=== PATIENT | female | born 1940 | race Caucasian/White ===

== ENCOUNTER 2020-04-26 20:42 | Emergency (ER) | payer MEDICARE, OTHER ==
[~2020-04-26] VITALS: Ht 152.4 cm; Wt 69.4 kg
--- NOTE | 2020-04-26 21:49 | Diagnostic Imaging Report ---
EXAM: Abdomen Radiograph 1 View(s) INDICATION: ^Y ^ABD PAIN ^[id number] ^[id number] COMPARISON: None FINDINGS: Diffuse gaseous distention of the colon. No discrete dilated small bowel loops. No abnormal soft tissue calcification. No discrete free intraperitoneal air. Scattered osseous degenerative change. No acute osseous abnormality. IMPRESSION: Diffuse gaseous distention of the colon. No identifiable dilated small bowel loops to suggest small bowel obstruction. Signed by: Haider Woo MD on 04/26/2020 9:46 PM
[2020-04-26 22:54] LABS: BASOPHILS % 0.4 % (0.0-1.0); EOSINOPHILS % 0.3 % (0.0-6.0); HEMATOCRIT 40.5 % (34.2-44.1); HEMOGLOBIN 12.5 g/dL (12.0-16.0); LYMPHOCYTES # (AUTO) 1.2 (1.0-3.2); LYMPHOCYTES % 10.6 % (18.0-39.1); MEAN CORPUSCULAR HEMOGLOBIN 27.8 pg (28-32); MEAN CORPUSCULAR HGB CONC 30.9 g/dL (31-35); MONOCYTES # (AUTO) 0.6 (0.2-0.8); MONOCYTES % 5.2 % (4.4-11.3); NEUTROPHILS # (AUTO) 9.5 (2.1-6.9); NEUTROPHILS % 83.1 % (38.7-80.0); PLATELET COUNT 314 x10e3/uL (140-360); RED CELL DISTRIBUTION WIDTH 14.2 % (11.7-14.4)
[2020-04-26 23:11] LABS: ALBUMIN 4.1 g/dL (3.5-5.0); ALBUMIN/GLOBULIN RATIO 1.2 (0.8-2.0); ANION GAP 14.1 mmol/L (8-16); CALCIUM 9.6 mg/dL (8.4-10.2); CREATININE, SERUM 1.43 mg/dL (0.57-1.11); POTASSIUM 4.1 mmol/L (3.5-5.1)
--- NOTE | 2020-04-26 23:48 | Emergency Department Note ---
History of Present Illnes History of Present Illness Chief Complaint: Abdominal Complaints History of Present Illness This is a 79 year old female arrived to the ED with complaints of diffuse abdominal pain after taking lactulose, pt states she has had multiple bowel movements, but improvement of symptoms and resolution of abdominal pain noted. Historian: Patient Arrival Mode: Car Field Agent Required: No Onset (how long ago): hour(s) Radiation: Reports non-radiation Severity: mild Timing of current episode: intermittent Progression: partially resolved Chronicity: new Relieving factors: none Past Medical/Family History Physician Review I have reviewed the patient's past medical and family history. Any updates have been documented here. Past Medical History Recent Fever: No Clinical Suspicion of Infectio: No New/Unexplained Change in Ment: No Past Medical History: Hypertension, COPD, CHF, CT, Asthma, Hyperlipedemia, Osteoarthritis Past Surgical History: CABG, PCI Social History Smoking Cessation: Never Smoker Family History Family history of heart diseas: No Other Last Tetanus: UNKNOWN Review of Systems Review of Systems Constitutional: Reports no symptoms EENTM: Reports no symptoms Cardiovascular: Reports no symptoms Respiratory: Reports no symptoms Gastrointestinal: Reports abdominal pain, Reports vomiting Genitourinary: Reports no symptoms Musculoskeletal: Reports no symptoms Integumentary: Reports no symptoms Neurological: Reports no symptoms Psychological: Reports no symptoms Endocrine: Reports no symptoms Hematological/Lymphatic: Reports no symptoms Physical Exam Related Data Allergies: Coded Allergies: Codeine (Verified Allergy, Mild, CAN'T BREATHE, 01/17/11) Penicillins (Verified Allergy, Mild, SEVERE RASH, 08/21/10) Sulfa (Sulfonamide Antibiotics) (Verified Allergy, Mild, SEVERE RASH, 08/21/10) Triage Vital Signs Vital Signs Date Time Temp Pulse Resp B/P (MAP) Pulse Ox O2 Delivery O2 Flow Rate FiO2 04/26/20 21:05 98.0 69 20 142/108 97 Vital signs reviewed: Yes Physical Exam CONSTITUTIONAL Constitutional: Present well-developed, Present well-nourished HENT HENT: Present normocephalic, Present atraumatic, Present oropharynx clear/moist, Present nose normal HENT L/R: Present left ext ear normal, Present right ext ear normal EYES Eyes: Reports PERRL, Reports conjunctivae normal NECK Neck: Present ROM normal PULMONARY Pulmonary: Present effort normal, Present breath sounds normal CARDIOVASCULAR Cardiovascular: Present regular rhythm, Present heart sounds normal, Present capillary refill normal, Present normal rate GASTROINTESTINAL Abdominal: Present soft, Present nontender, Present bowel sounds normal GENITOURINARY Genitourinary: Present exam deferred SKIN Skin: Present warm, Present dry MUSCULOSKELETAL Musculoskeletal: Present ROM normal NEUROLOGICAL Neurological: Present alert, Present oriented x 3, Present no gross motor or sensory deficits PSYCHOLOGICAL Psychological: Present mood/affect normal, Present judgement normal Results Laboratory Result Diagram: 04/26/20 2227 Laboratory Laboratory Tests Test 04/26/20 22:27 White Blood Count 11.37 x10e3/uL (4.8-10.8) Red Blood Count 4.50 x10e6/uL (3.6-5.1) Hemoglobin 12.5 g/dL (12.0-16.0) Hematocrit 40.5 % (34.2-44.1) Mean Corpuscular Volume 90.0 fL (81-99) Mean Corpuscular Hemoglobin 27.8 pg (28-32) Mean Corpuscular Hemoglobin Concent 30.9 g/dL (31-35) Red Cell Distribution Width 14.2 % (11.7-14.4) Platelet Count 314 x10e3/uL (140-360) Neutrophils (%) (Auto) 83.1 % (38.7-80.0) Lymphocytes (%) (Auto) 10.6 % (18.0-39.1) Monocytes (%) (Auto) 5.2 % (4.4-11.3) Eosinophils (%) (Auto) 0.3 % (0.0-6.0) Basophils (%) (Auto) 0.4 % (0.0-1.0) Neutrophils # (Auto) 9.5 (2.1-6.9) Lymphocytes # (Auto) 1.2 (1.0-3.2) Monocytes # (Auto) 0.6 (0.2-0.8) Eosinophils # (Auto) 0.0 (0.0-0.4) Basophils # (Auto) 0.0 (0.0-0.1) Absolute Immature Granulocyte (auto 0.04 x10e3/uL (0-0.1) Lab results reviewed: Yes Imaging Imaging results reviewed: Yes Impressions IMPRESSION: Diffuse gaseous distention of the colon. No identifiable dilated small bowel loops to suggest small bowel obstruction. Assessment & Plan Medical Decision Making MDM 79-year-old female arrives to the ED with complaints of abdominal pain, patient recently took lactulose as described. Constipation. Patient admits to having bowel movements and improvement of pain and bloating but states her stomach feels a little distended. Assessment & Plan Final Impression: (1) Constipation Depart Disposition: HOME, SELF-CARE Last Vital Signs Date Time Temp Pulse Resp B/P (MAP) Pulse Ox O2 Delivery O2 Flow Rate FiO2 04/26/20 21:05 98.0 69 20 142/108 97 ADELA JAQUEZ DO Apr 26, 2020 23:48
== END 2020-04-27 00:31 | disposition home or self-care (01) ==
LOC: ER 23:47
DX: K59.00 Constipation, unspecified (principal); R10.9 Unspecified abdominal pain; I10 Essential (primary) hypertension; E78.5 Hyperlipidemia, unspecified; J44.9 Chronic obstructive pulmonary disease, unspecified; I50.9 Heart failure, unspecified; I25.2 Old myocardial infarction; Z95.1 Presence of aortocoronary bypass graft
CPT/HCPCS: 36415; 74018; 80053; 83690; 85025; 99283

== ENCOUNTER 2020-06-25 15:33 | Inpatient (IN) | payer MEDICARE, OTHER ==
[~2020-06-25] VITALS: Ht 152.4 cm; Wt 68.6 kg
[2020-06-25 16:25] LABS: BASOPHILS # (AUTO) 0.1 (0.0-0.1); BASOPHILS % 0.4 % (0.0-1.0); EOSINOPHILS # (AUTO) 0.1 (0.0-0.4); EOSINOPHILS % 0.7 % (0.0-6.0); HEMATOCRIT 38.9 % (34.2-44.1); HEMOGLOBIN 12.4 g/dL (12.0-16.0); LYMPHOCYTES # (AUTO) 1.5 (1.0-3.2); LYMPHOCYTES % 11.2 % (18.0-39.1); MEAN CORPUSCULAR HEMOGLOBIN 28.4 pg (28-32); MEAN CORPUSCULAR HGB CONC 31.9 g/dL (31-35); MONOCYTES # (AUTO) 1.1 (0.2-0.8); MONOCYTES % 8.2 % (4.4-11.3); NEUTROPHILS # (AUTO) 10.8 (2.1-6.9); NEUTROPHILS % 79.1 % (38.7-80.0); PLATELET COUNT 332 x10e3/uL (140-360); RED BLOOD COUNT 4.37 x10e6/uL (3.6-5.1); RED CELL DISTRIBUTION WIDTH 14.2 % (11.7-14.4)
[2020-06-25 16:35] LABS: INR 0.94
[2020-06-25 16:36] LABS: PARTIAL THROMBOPLASTIN TIME 29.4 seconds (23.8-35.5)
--- OUTSIDE RECORDS SUMMARY | 2020-06-25 16:42 | XMS REPORT | Continuity of Care Document ---
Author Author [facility] t Organization [facility] Address [address] [place] [address] Phone Unavailable Care Team Providers Care Well Driller Name Role Phone Fernando SPENCER PCP [phone] Soraida JAQUEZ Attjuan Unavailable Payers Payer Name Policy Type Policy Number Effective Date Expiration Date Soraida barbour [id number] 2007 00:00:00 [facility] Ppo [id number] 2007 00:00:00 [facility] Problems Condition Name Condition Details Condition Category Status Onset Date Resolution Date Last Treatment Date Treating Clinician Comments Source Problem Condition Active [facility] Allergies, Adverse Reactions, Alerts Allergy Name Allergy Type Status Severity Reaction(s) Onset Date Inacti ve Date Treating Clinician Comments Source Codeine Allergy to substance Active Mild CAN'T BREATHE 2011-01-17 00 :00:00 [facility] Penicillin Allergy to substance Active Mild SEVERE RASH 2010-08-21 0 0:00:00 [facility] Sulfa (Sulfonamide Antibiotics) Allergy to substance Active Mild SEVERE RASH 2010-08-21 00:00:00 [facility] Social History Social Habit Start Date Stop Date Quantity Comments Source Sex Assigned At [facility] Medications This patient has no known medications. Vital Signs Vital Name Observation Time Observation Value Comments Source Weight 2020-04-26 21:05:00 153 [lb_av] [facility] BMI (Body Mass Index) 2020-04-26 21:05:00 29.9 kg/m2 [facility] Procedures This patient has no known procedures. Plan of Care Planned Activity Planned Date Details Comments Source Future Scheduled Test 2018-07-28 00:00:00 INFLUENZA VACCINE [code = INFLUENZA VACCINE] [facility] - [facility] Encounters Start Date/Time End Date/Time Encounter Type Admission Type [facility] Care Department Encounter ID Source 2020-04-26 23:47:00 2020-04-27 00:31:00 Departed Emergency Room ADELA JAQUEZ [facility] [id number] [facility] Results Test Description Test Time Test Comments Results Result Comments Source Blood leukocytes automated count (number/volume) 2020-04-26 22:27:00 Test Item White Blood Count (test code = 6690-2) 11.37 4.8-10.8 [facility] count (number/volume)2020-04-26 22:27:00* Test Item Value Reference Range Interpretation Comments Red Blood Count (test code = 789-8) 4.50 3.6-5.1 [facility] measurement (moles/volume)2020-04-26 22:27:00* Test Item Value Reference Range Interpretation Comments Hemoglobin (test code = 13827-1) 12.5 12.0-16.0 [facility] blood hematocrit (volume fraction)2020-04-26 22:27:00* Test Item Value Reference Range Interpretation Comments Hematocrit (test code = 4544-3) 40.5 34.2-44.1 [facility] erythrocyte mean corpuscular [id number] 22:27:00* Test Item Value Reference Range Interpretation Comments Mean Corpuscular Volume (test code = 787-2) 90.0 81-99 [facility] eryth[facility] mean corpuscular hemoglobin (mass per erythrocyte)2020-04-26 22:27:00* Test Item Value Reference Range Interpretation Comments Mean Corpuscular Hemoglobin (test code = 785-6) 27.8 28-32 [facility] eryth[facility] mean corpuscular hemoglobin concentration measurement (mass/volume)2020-04-26 22:27:00* Test Item Value Reference Range Interpretation Comments Mean Corpuscular Hemoglobin Concent (test code = 786-4) 30.9 31-35 [facility] HospitalRDW [id number] 22:27:00* Test Item Value Reference Range Interpretation Comments Red Cell Distribution Width (test code = 18636-1) 14.2 11.7 -14.4 [facility] platelet count (count/volume)2020-04-26 22:27:00* Test Item Value Reference Range Interpretation Comments Platelet Count (test code = 777-3) 314 140-360 [facility] campused blood segmented neutrophil count as percentage of total [id number] 22:27:00* Test Item Value Reference Range Interpretation Comments Neutrophils (%) (Auto) (test code = 91679-8) 83.1 38.7-80.0 [facility] campused blood lymphocyte count as percentage ot total [id number] 22:27:00* Test Item Value Reference Range Interpretation Comments Lymphocytes (%) (Auto) (test code = 736-9) 10.6 18.0-39.1 [facility] HospitalAutom[facility] blood monocyte count as percentage of total [id number] 22:27:00* Test Item Value Reference Range Interpretation Comments Monocytes (%) (Auto) (test code = 5905-5) 5.2 4.4-11.3 [facility] campused blood eosinophil count as percentage of total ttffwjbqmw1055-64-43 22:27:00* Test Item Value Reference Range Interpretation Comments Eosinophils (%) (Auto) (test code = 713-8) 0.3 0.0-6.0 [facility] HospitalAutom[facility] blood basophil count as percentage of total [id number] 22:27:00* Test Item Value Reference Range Interpretation Comments Basophils (%) (Auto) (test code = 706-2) 0.4 0.0-1.0 [facility] HospitalFluoroscopic procedure less than one hour [id number] 22:27:00* Test Item Value Reference Range Interpretation Comments IM GRANULOCYTES % (test code = IM GRANULOCYTES %) 0.4 0.0- 1.0 [facility] HospitalAutom[facility] blood neutrophil count 2020-04-26 22:27:00* Test Item Value Reference Range Interpretation Comments Neutrophils # (Auto) (test code = 751-8) 9.5 2.1-6.9 [facility] Hospital[facility] lymphocytes count (number/volume) 2020-04-26 22:27:00* Test Item Value Reference Range Interpretation Comments Lymphocytes # (Auto) (test code = 13354-9) 1.2 1.0-3.2 [facility] HospitalBlood monocytes automated count (number/volume)2020-04-26 22:27:00* Test Item Value Reference Range Interpretation Comments Monocytes # (Auto) (test code = 742-7) 0.6 0.2-0.8 [facility] HospitalAutomated blood eosinophil count 2020-04-26 22:27:00* Test Item Value Reference Range Interpretation Comments Eosinophils # (Auto) (test code = 711-2) 0.0 0.0-0.4 [facility] HospitalAutomated blood basophil count (count/volume)2020-04-26 22:27:00* Test Item Value Reference Range Interpretation Comments Basophils # (Auto) (test code = 704-7) 0.0 0.0-0.1 [facility] HospitalFluoroscopic procedure less than one hour [id number] 22:27:00* Test Item Value Reference Range Interpretation Comments Absolute Immature Granulocyte (auto (ana t code = Absolute Immature Granulocyte (auto) 0.04 0-0.1 [facility] sodium [facility] (moles/volume)2020-04-26 22:27:00* Test Item Value Reference Range Interpretation Comments Sodium Level (test code = 2951-2) 133 136-145 [facility] potassium measurement (moles/volume)2020-04-26 22:27:00* Test Item Value Reference Range Interpretation Comments Potassium Level (test code = 2823-3) 4.1 3.5-5.1 [facility] chloride measurement (moles/volume)2020-04-26 22:27:00* Test Item Value Reference Range Interpretation Comments Chloride Level (test code = 2075-0) 99 98-107 [facility] plasma carbon dioxide, total measurement (moles/volume)2020-04-26 22:27:00* Test Item Value Reference Range Interpretation Comments Carbon Dioxide Level (test code = 2028-9) 24 - [facility]um or plasma anion [id number] 22:27:00* Test Item Value Reference Range Interpretation Comments Anion Gap (test code = 78553-1) 14.1 8-16 [facility] urea nitrogen measurement (mass/volume)2020-04-26 22:27:00* Test Item Value Reference Range Interpretation Comments Blood Urea Nitrogen (test code = 3094-0) 13 7-26 [facility] creatinine measurement (mass/volume)2020-04-26 22:27:00* Test Item Value Reference Range Interpretation Comments Creatinine (test code = 2160-0) 1.43 0.57-1.11 [facility] urea nitrogen/creatinine mass [id number] 22:27:00* Test Item Value Reference Range Interpretation Comments BUN/Creatinine Ratio (test code = 3097-3) 9 6-25 [facility] HospitalEstimated glomerular filtration rate (GFR) pubwvzrylzkzh6005-52-20 22:27:00* Test Item Value Reference Range Interpretation Comments Estimat Glomerular Filtration Rate (test code = 760414056) 36 >60 Ranges were taken from the National Kidney Disease Education Program and the [facility] Kidney Foundation literature.Reference ranges:60 or greater: Srwglw70-74 ( for 3 consecutive months): Chronic kidney disease 15 or less: Kidney failureMemorial Hermann Cypress HospitalGlucose ftqkllzywkw2927-95-38 22:27:00* Test Item Value Reference Range Interpretation Comments Glucose Level (test code = XZH3927) 115 74-118 [facility] calcium measurement (mass/volume)2020-04-26 22:27:00* Test Item Value Reference Range Interpretation Comments Calcium Level (test code = 65726-9) 9.6 8.4-10.2 [facility] total bilirubin measurement (mass/volume)2020-04-26 22:27:00* Test Item Value Reference Range Interpretation Comments Total Bilirubin (test code = 1975-2) 0.4 0.2-1.2 [facility] HospitalFluoroscopic procedure less than one hour [id number] 22:27:00* Test Item Value Reference Range Interpretation Comments Aspartate Amino Transf (AST/SGOT) (test code = Aspartate Amino Transf (AST/SGOT)) 14 5-34 [facility]er[facility] or plasma alanine aminotransferase measurement (enzymatic activity/volume)2020-04-26 22:27:00* Test Item Value Reference Range Interpretation Comments Alanine Aminotransferase (ALT/SGPT) (test code = 1742-6) 6 0-55 [facility] plasma protein measurement (mass/volume)2020-04-26 22:27:00* Test Item Value Reference Range Interpretation Comments Total Protein (test code = 2885-2) 7.5 6.5-8.1 [facility] plasma albumin measurement (mass/volume)2020-04-26 22:27:00* Test Item Value Reference Range Interpretation Comments Albumin (test code = 1751-7) 4.1 3.5-5.0 [facility] HospitalPlasma globulin measurement (mass/volume) 2020-04-26 22:27:00* Test Item Value Reference Range Interpretation Comments Globulin (test code = 98168-7) 3.4 2.3-3.5 [facility] plasma albumin/globulin mass [id number] 22:27:00* Test Item Value Reference Range Interpretation Comments Albumin/Globulin Ratio (test code = 1759-0) 1.2 0.8-2.0 [facility] alkaline phosphatase measurement (enzymatic activity/volume)2020-04-26 22:27:00* Test Item Value Reference Range Interpretation Comments Alkaline Phosphatase (test code = 6768-6) 72 40-150 [facility] or plasma lipase measurement (enzymatic activity/volume)2020-04-26 22:27:00* Test Item Value Reference Range Interpretation Comments Lipase (test code = 3040-3) 23 8-78 [facility] HospitalABDOMEN-1VIEW (KUB)2020-04-26 21:44:00 [facility] [address] [address] Patient Name: CRISTIANE LIRA MR #: [id number] : 1940 Age/Sex: 79/F Req #: [id number] Adm Physician: Ordered by: ADELA JAQUEZ DO Report #: [id number] Location: ER Room/Bed: Procedure: [id number] DX/IDALMISO MEN-1VIEW (KUB) Exam Date: 04/26/20 Exam Time: 2119 REPORT STATUS: Signed EXAM: Abdo men Radiograph 1 View(s) INDICATION: Y ABD PAIN 20200426 212 COMPARISON: None FINDINGS: Diffuse gaseous distention of the colon . No discrete dilated small bowel loops. No abnormal soft tissue calcificat ion. No discrete free intraperitoneal air. Scattered osseous degenerative c hange. No acute osseous abnormality. IMPRESSION: Diffuse gaseous diste ntion of the colon. No identifiable dilated small bowel loops to suggest small bowel obstruction. Signed by: Haider Michelle MD on 04/26/2020 9:46 PM Dictated By: HAIDER MICHELLE MD 47 Transcribed By: MARILYNN on 04/26/202145 COPY TO: ADELA DEVINE DO
--- OUTSIDE RECORDS SUMMARY | 2020-06-25 16:42 | XMS REPORT | Clinical Summary ---
Author Author [facility] Address Unknown Phone Unavailable Care Team Providers Care Kettleman Name Role Phone PCP Unavailable Allergies Not on File Medications Not on file Active Problems Not on file Social History Date Tobacco Use Types Packs/Day Years Used Never Assessed Sex Assigned at Date Recorded Not on file Industry Job Start Date Occupation Not on file Not on file Not on file Travel End Travel History Travel Start No recent travel history available. Last Filed Vital Signs Not on file Plan of Treatment Health Maintenance Due Date Last Done Comments INFLUENZA VACCINE 07/28/2018 Results Not on fileafter 06/25/2019 Insurance Payer Benefit Subscriber ID Type Phone Address Plan / Group [employer] [facility] [facility] [phone]
[2020-06-25 16:44] LABS: ALBUMIN 3.8 g/dL (3.5-5.0); ALKALINE PHOSPHATASE 76 IU/L (40-150); BLOOD UREA NITROGEN 11 mg/dL (7-26); BUN/CREATININE RATIO 8 (6-25); CALCIUM 9.3 mg/dL (8.4-10.2); CARBON DIOXIDE 21 mmol/L (22-29); CHLORIDE 97 mmol/L (98-107); CREATININE, SERUM 1.33 mg/dL (0.57-1.11); EST GLOMERULAR FILTRATION RATE 39 ML/MIN (60-); GLUCOSE 117 mg/dL (74-118); SODIUM 132 mmol/L (136-145)
[2020-06-25 16:48] LABS: ALANINE AMINOTRANSFERASE < 6 IU/L (0-55)
--- NOTE | 2020-06-25 16:54 | Emergency Department Note ---
History of Present Illnes History of Present Illness Chief Complaint: Abdominal Complaints History of Present Illness This is a 79 year old female PATIENT IN FROM HOME WITH COMPLAINTS OF ABDOMINAL PAIN AND CONSTIPATION OFF AND ON X 2 MONTHS; PATIENT STATES THAT SHE WAS SEEN FOR THE SAME THING 04/26/2020. PATIENT ALERT AND ORIENTED, RESP EVEN AND NONLABORED, APPEARS IN NO DISTRESS, AMBULATORY WITHOUT ASSISTANCE. RATES PAIN 10/10. PATIENT DENIES NAUSEA, VOMITING, OR DIARRHEA. Historian: Patient Arrival Mode: Car Onset (how long ago): month(s) Radiation: Reports non-radiation Severity: moderate Onset quality: gradual Timing of current episode: intermittent Progression: worsening (PAIN WORSE TODAY) Chronicity: recurrent Context: Denies recent illness Relieving factors: none Exacerbating factors: none Associated symptoms: Reports denies other symptoms Treatments prior to arrival: none (SHERMAN STEEN MD) Past Medical/Family History Physician Review I have reviewed the patient's past medical and family history. Any updates have been documented here. (SHERMAN STEEN MD) Past Medical History Recent Fever: No Clinical Suspicion of Infectio: No New/Unexplained Change in Ment: No Past Medical History: Hypertension, COPD, CHF, [place], Asthma, Hyperlipedemia, Osteoarthritis Past Surgical History: CABG, PCI (SHERMAN STEEN MD) Social History Smoking Cessation: Never Smoker Counseling Performed: No Alcohol Use: None Any Illegal Drug Use: No TB Exposure/Symptoms: No Physically hurt or threatened: No (SHERMAN STEEN MD) Family History Family history of heart diseas: No (SHERMAN STEEN MD) Other Last Tetanus: UNKNOWN Any Pre-Existing Lines (PICC,: No (SHERMAN TSEEN MD) Review of Systems Review of Systems Constitutional: Reports no symptoms EENTM: Reports no symptoms Cardiovascular: Reports no symptoms Respiratory: Reports no symptoms Gastrointestinal: Reports as per HPI Genitourinary: Reports no symptoms Musculoskeletal: Reports no symptoms Integumentary: Reports no symptoms Neurological: Reports no symptoms Psychological: Reports no symptoms Endocrine: Reports no symptoms Hematological/Lymphatic: Reports no symptoms (SHERMAN STEEN MD) Physical Exam Related Data Allergies: Coded Allergies: Penicillins (Verified Allergy, Mild, SEVERE RASH, 06/25/20) Sulfa (Sulfonamide Antibiotics) (Verified Allergy, Mild, SEVERE RASH, 06/25/20) codeine (Verified Allergy, Mild, CAN'T BREATHE, 06/25/20) Triage Vital Signs Vital Signs Date Time Temp Pulse Resp B/P (MAP) Pulse Ox O2 Delivery O2 Flow Rate FiO2 06/25/20 15:37 97.8 87 16 121/69 97 Room Air Vital signs reviewed: Yes (SHERMAN STEEN MD) Physical Exam CONSTITUTIONAL Constitutional: Present well-developed, Present obese HENT HENT: Present normocephalic, Present atraumatic, Present oropharynx clear/moist, Present nose normal HENT L/R: Present left ext ear normal, Present right ext ear normal EYES Eyes: Reports PERRL, Reports conjunctivae normal NECK Neck: Present ROM normal PULMONARY Pulmonary: Present effort normal, Present breath sounds normal CARDIOVASCULAR Cardiovascular: Present regular rhythm, Present heart sounds normal, Present capillary refill normal, Present normal rate GASTROINTESTINAL Abdominal: Present soft, Present tender (MOD SUSY, MILD DIFFUSE), Present other (DECREASED BOWEL SOUNDS); Absent distension, Absent guarding, Absent rebound, Absent left CVA tenderness, Absent right CVA tenderness GENITOURINARY Genitourinary: Present exam deferred SKIN Skin: Present warm, Present dry MUSCULOSKELETAL Musculoskeletal: Present ROM normal NEUROLOGICAL Neurological: Present alert, Present oriented x 3, Present no gross motor or sensory deficits PSYCHOLOGICAL Psychological: Present mood/affect normal, Present judgement normal (SHERMAN STEEN MD) Results Laboratory Result Diagram: 06/25/20 1604 06/25/20 1604 Laboratory Laboratory Tests Test 06/25/20 16:41 06/25/20 16:04 White Blood Count 13.69 x10e3/uL (4.8-10.8) Red Blood Count 4.37 x10e6/uL (3.6-5.1) Hemoglobin 12.4 g/dL (12.0-16.0) Hematocrit 38.9 % (34.2-44.1) Mean Corpuscular Volume 89.0 fL (81-99) Mean Corpuscular Hemoglobin 28.4 pg (28-32) Mean Corpuscular Hemoglobin Concent 31.9 g/dL (31-35) Red Cell Distribution Width 14.2 % (11.7-14.4) Platelet Count 332 x10e3/uL (140-360) Neutrophils (%) (Auto) 79.1 % (38.7-80.0) Lymphocytes (%) (Auto) 11.2 % (18.0-39.1) Monocytes (%) (Auto) 8.2 % (4.4-11.3) Eosinophils (%) (Auto) 0.7 % (0.0-6.0) Basophils (%) (Auto) 0.4 % (0.0-1.0) Neutrophils # (Auto) 10.8 (2.1-6.9) Lymphocytes # (Auto) 1.5 (1.0-3.2) Monocytes # (Auto) 1.1 (0.2-0.8) Eosinophils # (Auto) 0.1 (0.0-0.4) Basophils # (Auto) 0.1 (0.0-0.1) Absolute Immature Granulocyte (auto 0.06 x10e3/uL (0-0.1) Prothrombin Time 13.0 seconds (11.9-14.5) Prothromb Time International Ratio 0.94 Activated Partial Thromboplast Time 29.4 seconds (23.8-35.5) Sodium Level 132 mmol/L (136-145) Potassium Level 4.0 mmol/L (3.5-5.1) Chloride Level 97 mmol/L (98-107) Carbon Dioxide Level 21 mmol/L (22-29) Anion Gap 18.0 mmol/L (8-16) Blood Urea Nitrogen 11 mg/dL (7-26) Creatinine 1.33 mg/dL (0.57-1.11) Estimat Glomerular Filtration Rate 39 ML/MIN (60-) BUN/Creatinine Ratio 8 (6-25) Glucose Level 117 mg/dL (74-118) Calcium Level 9.3 mg/dL (8.4-10.2) Total Bilirubin 0.7 mg/dL (0.2-1.2) Aspartate Amino Transf (AST/SGOT) 12 IU/L (5-34) Alanine Aminotransferase (ALT/SGPT) < 6 IU/L (0-55) Alkaline Phosphatase 76 IU/L (40-150) Total Protein 7.6 g/dL (6.5-8.1) Albumin 3.8 g/dL (3.5-5.0) Globulin 3.8 g/dL (2.3-3.5) Albumin/Globulin Ratio 1.0 (0.8-2.0) Lab results reviewed: Yes (SHERMAN STEEN MD) Imaging Imaging results reviewed: Yes (SHERMAN STEEN MD) Imaging results reviewed: Yes Impressions Procedure: [id number] CT/CT ABDOMEN/PELVIS WO Exam Date: 06/25/20 Exam Time: 1820 REPORT STATUS: Signed EXAM: CT Abdomen and Pelvis WITHOUT contrast INDICATION: Abdominal pain and constipation. COMPARISON: Same day radiographs. TECHNIQUE: Abdomen and pelvis were scanned utilizing a multidetector helical scanner from the lung base to the pubic symphysis without administration of IV contrast. Absence of intravenous contrast decreases sensitivity for detection of focal lesions and vascular pathology. Coronal and sagittal reformations were obtained. Routine protocol was performed. IV CONTRAST: None ORAL CONTRAST: None COMPLICATIONS: None RADIATION DOSE: Total DLP: 521.63 mGy*cm Estimated effective dose: (DLP x 0.015 x size factor) mSv CTDIvol has been reviewed. It is below the limits set by the Radiation Protocol Committee (RPC). Dose modulation, iterative reconstruction, and/or weight based adjustment of the mA/kV was utilized to reduce the radiation dose to as low as reasonably achievable. FINDINGS: LINES and TUBES: None. LOWER THORAX: Bibasilar atelectasis and atherosclerotic calcification of the coronary vessels. There is also cardiac apical and pericardial dystrophic calcification. HEPATOBILIARY: No focal hepatic lesions. No biliary ductal dilation. GALLBLADDER: No radio-opaque stones or sludge. No wall thickening. SPLEEN: No splenomegaly. PANCREAS: No focal masses or ductal dilatation. ADRENALS: No adrenal nodules KIDNEYS/URETERS: No hydronephrosis. No cystic or solid mass lesions. No stones. GI TRACT: There is a small sized hiatal hernia. Enteric contrast material is seen in the small bowel only. Large bowel is not opacified by enteric contrast, limiting optimal assessment. There is diffuse diverticulosis coli and apparent circumferential wall thickening of the sigmoid colon which is difficult to evaluate due to lack of enteric contrast. There is mildly dilated loops of large bowel proximal to the sigmoid colon. The appendix is normal. PELVIC ORGANS/BLADDER: Unremarkable. LYMPH NODES: No lymphadenopathy. VESSELS: There is severe atherosclerotic disease in the aorta and major arterial branches. PERITONEUM / RETROPERITONEUM: No free air or fluid. BONES: There are degenerative changes in the spine. There are compression fracture deformities of T10, T12, L2, L3 and L4 vertebral bodies. SOFT TISSUES: Unremarkable. IMPRESSION: 1. Diverticulosis coli and apparent circumferential wall thickening of the sigmoid colon with mild colonic dilatation proximally. This constellation of findings may represent acute diverticulitis causing mucosal wall thickening and partial large bowel obstruction. However, this may also represent sigmoid colon malignancy resulting in partial large bowel obstruction. Recommend repeat abdominal/pelvic CT with addition of intravenous contrast in 1-2 hours to also w enteric contrast into the large bowel for optimal assessment. 2. Compression fractures involving T10, T12, L2, L3 and L4 vertebral bodies of indeterminate age. Correlate with history of trauma and point tenderness. Signed by: Ben Foss MD on 06/25/2020 7:04 PM Dictated By: EBN FOSS MD 03 Transcribed By: MARILYNN on 06/25/201903 COPY TO: SHERMAN STEEN MD~ (JUAN DILLARD MD) Assessment & Plan Medical Decision Making [facility] PT WITH LONG HX OF CONSTIPATION, NOW WITH INCREASED ABD PAIN - CHECK CBC, CHEM'S, UA/CX, CT ABD/PELVIS - R/O CONSTIPATION, BOWEL OBSTRUCTION, RENAL INSUFF, UTI (SHERMAN STEEN MD) MDM 1932 Patient found to have partial large bowel obstruction on CT head and pelvis related to either diverticulitis or possible colon mass. I spoke with Dr. Jeromy Moncada for admission and he requested I consult Dr. Francis Jarquin added Dr. Grady Wade I have spoken to both Dr. SRIRAM young and/or Dr. Wade of outpatient patient admitted to inpatient kept nothing by mouth started on antibiotics for diverticulitis (JUAN DILALRD MD) Reassessment Reassessment REPORT TO DR DILLARD FOR DISPO - F/U CT (SHERMAN STEEN MD) Assessment & Plan Final Impression: (1) Abdominal pain (2) UTI (urinary tract infection) (SHERMAN STEEN MD) Final Impression: (1) UTI (urinary tract infection) (2) Abdominal pain (3) Large bowel obstruction (4) Diverticulitis (JUAN DILLARD MD) Depart Disposition: ADMITTED Last Vital Signs Date Time Temp Pulse Resp B/P (MAP) Pulse Ox O2 Delivery O2 Flow Rate FiO2 06/25/20 15:37 97.8 87 16 121/69 97 Room Air (SHERMAN STEEN MD) SHERMAN STEEN MD Jun 25, 2020 16:54 JUAN DILLARD MD Jun 25, 2020 19:33
[2020-06-25 17:18] LABS: CLARITY,URINE CLEAR (CLEAR); COLOR,URINE YELLOW (YELLOW)
[2020-06-25 17:19] LABS: BILIRUBIN,URINE NEGATIVE (NEGATIVE); KETONES,URINE NEGATIVE (NEGATIVE); LEUKOCYTE ESTERASE ,URINE TRACE (NEGATIVE); NITRITE,URINE NEGATIVE (NEGATIVE); PROTEIN,URINE DIPSTICK NEGATIVE (NEGATIVE); URINE UROBILINOGEN 0.2 mg/dL (0.2 - 1)
[2020-06-25] MEDS ORDERED: DIATRIZOATE MEGL/DIATRIZOA SOD 30 ML BTL PO ONE (17:19)
[2020-06-25 17:38] LABS: BACTERIA,URINE RARE /HPF; EPITHELIAL CELLS,URINE FEW /LPF
[2020-06-25] MEDS ORDERED: CEFTRIAXONE SOD 1 GM/NS 50 ML 50 ML IV ONE (18:30)
--- NOTE | 2020-06-25 19:08 | Diagnostic Imaging Report ---
EXAM: CT Abdomen and Pelvis WITHOUT contrast INDICATION: Abdominal pain and constipation. COMPARISON: Same day radiographs. TECHNIQUE: Abdomen and pelvis were scanned utilizing a multidetector helical scanner from the lung base to the pubic symphysis without administration of IV contrast. Absence of intravenous contrast decreases sensitivity for detection of focal lesions and vascular pathology. Coronal and sagittal reformations were obtained. Routine protocol was performed. IV CONTRAST: None ORAL CONTRAST: None COMPLICATIONS: None RADIATION DOSE: Total DLP: 521.63 mGy*cm Estimated effective dose: (DLP x 0.015 x size factor) mSv CTDIvol has been reviewed. It is below the limits set by the Radiation Protocol Committee (RPC). Dose modulation, iterative reconstruction, and/or weight based adjustment of the mA/kV was utilized to reduce the radiation dose to as low as reasonably achievable. FINDINGS: LINES and TUBES: None. LOWER THORAX: Bibasilar atelectasis and atherosclerotic calcification of the coronary vessels. There is also cardiac apical and pericardial dystrophic calcification. HEPATOBILIARY: No focal hepatic lesions. No biliary ductal dilation. GALLBLADDER: No radio-opaque stones or sludge. No wall thickening. SPLEEN: No splenomegaly. PANCREAS: No focal masses or ductal dilatation. ADRENALS: No adrenal nodules KIDNEYS/URETERS: No hydronephrosis. No cystic or solid mass lesions. No stones. GI TRACT: There is a small sized hiatal hernia. Enteric contrast material is seen in the small bowel only. Large bowel is not opacified by enteric contrast, limiting optimal assessment. There is diffuse diverticulosis coli and apparent circumferential wall thickening of the sigmoid colon which is difficult to evaluate due to lack of enteric contrast. There is mildly dilated loops of large bowel proximal to the sigmoid colon. The appendix is normal. PELVIC ORGANS/BLADDER: Unremarkable. LYMPH NODES: No lymphadenopathy. VESSELS: There is severe atherosclerotic disease in the aorta and major arterial branches. PERITONEUM / RETROPERITONEUM: No free air or fluid. BONES: There are degenerative changes in the spine. There are compression fracture deformities of T10, T12, L2, L3 and L4 vertebral bodies. SOFT TISSUES: Unremarkable. IMPRESSION: 1. Diverticulosis coli and apparent circumferential wall thickening of the sigmoid colon with mild colonic dilatation proximally. This constellation of findings may represent acute diverticulitis causing mucosal wall thickening and partial large bowel obstruction. However, this may also represent sigmoid colon malignancy resulting in partial large bowel obstruction. Recommend repeat abdominal/pelvic CT with addition of intravenous contrast in 1-2 hours to also w enteric contrast into the large bowel for optimal assessment. 2. Compression fractures involving T10, T12, L2, L3 and L4 vertebral bodies of indeterminate age. Correlate with history of trauma and point tenderness. Signed by: Juan Carlos Anguiano MD on 06/25/2020 7:04 PM
[2020-06-25] MEDS ORDERED: ONDANSETRON HCL INJ 2MG/ML 2ML 2 MG/ML VIAL IV PRN (19:45)
[2020-06-25] MEDS ORDERED: MORPHINE SULFATE 2 MG/ML SYR 1ML IV PRN (19:45)
--- OUTSIDE RECORDS SUMMARY | 2020-06-25 19:46 | XMS REPORT | Clinical Summary ---
Author Author [facility] Address Unknown Phone Unavailable Care Team Providers Care Battery Engineer Name Role Phone PCP Unavailable Allergies Not [...] Address Plan / Group [facility] x[facility] [id number]
--- OUTSIDE RECORDS SUMMARY | 2020-06-25 19:46 | XMS REPORT | Continuity of Care Document ---
Author Author [facility] t Organization [facility] Address [address] [place] [address] Phone Unavailable Care Team Providers Care Coil Inspector Name Role Phone Fernando SPENCER PCP Megha STEEN Attphys Unavailable Soraida JAQUEZ Attphys Unavailable Payers Payer Name Policy Type Policy Number Effective Date Expiration Date Soraida barbour [facility] [id number] 2007 00:00:00 [facility] o [id number] 2007 00:00:00 [facility] Problems Condition Name Condition Details Condition Category Status Onset Date Resolution Date Last Treatment Date Treating Clinician Comments Source Problem Condition Active [facility] Allergies, Adverse Reactions, Alerts Allergy Name Allergy Type Status Severity Reaction(s) Onset Date Inacti ve Date Treating Clinician Comments Source Codeine Allergy to substance Active Mild CAN'T BREATHE 2011-01-17 00 :00:00 [facility] Penicillin Allergy to substance Active Mild SEVERE RASH 2010-08-21 0 0:00:00 [facility] Sulfa (Sulfonamide Antibiotics) Allergy to substance Active Mild SEVERE RASH 2010-08-21 00:00:00 [facility] Social History Social Habit Start Date Stop Date Quantity Comments Source Sex Assigned At [facility] Medications This patient has no known medications. Vital Signs Vital Name Observation Time Observation Value Comments Source Weight 2020-04-26 21:05:00 153 [lb_av] [facility] BMI (Body Mass Index) 2020-04-26 21:05:00 29.9 kg/m2 [facility] Procedures This patient has no known procedures. Plan of Care Planned Activity Planned Date Details Comments Source Future Scheduled Test 2018-07-28 00:00:00 INFLUENZA VACCINE [code = INFLUENZA VACCINE] [facility] Instructions Abdominal Pain - Adult [facility] Encounters Start Date/Time End Date/Time Encounter Type Admission Type Attendi [facility] Care Department Encounter ID Source 2020-04-26 23:47:00 2020-04-27 00:31:00 Departed Emergency Room ADELA JAQUEZ [facility] [id number] [facility] Results Test Description Test Time Test Comments Results Result Comments Source CT ABDOMEN/PELVIS WO 2020-06-25 18:50:00 [facility] [address] [address] Patient Name: CRISTIANE LIRA MR #: [id number] : 1940 Age/Sex: 79/F Req #: [id number] Adm Physician: Ordered by: SHERMAN STEEN MD Report #: [id number] Location: ER Room/Bed: Procedure: [id number] CT/CT ABDOMEN/PELVIS WO Exam Date: 06/25/20 Exam Time: 1820 REPORT STATUS: Signed EXAM: CT Abdomen and Pelvis WITHOUT contrast INDICATION: Abdominal pain and constipation. COMPARISON: Same day radiographs. TECHNIQUE: Abdomen and pelvis were scanned utilizing a multidetector helical scanner from the lung base to the pubic symphysis wit hout administration of IV contrast. Absence of intravenous contrast decreases sensitivity for detection of focal lesions and vascular pathology. Coronal and sagittal reformations were obtained. Routine protocol was performed. IV CONTRAST: None ORAL CONTRAST: None COMPLICATIONS: None RADIATION DOSE: Total DLP: 521.63 mGy*cm Estimated effective dose: (DLP x 0.015 x size factor) mSv CTDIvol has been reviewed. It is below the limits set by the Radiation Protocol Committee (RPC). Dose modulation, iterative reconstruction, and/or weight based adjustment of the mA/kV was utilized to reduce the radiation dose to as low as reasonably achievable. FINDINGS: LINES and TUBES: None. LOWER THORAX: Bibasilar atelectasis and atherosclerotic calcification of the coronary vessels. There is also cardiac apical and pericardial dystrophic calcification. HEPATOBILIARY: No focal hepatic lesions. No biliary ductal dilation. GALLBLADDER: No radio-opaque stones or sludge. No wall thickening. SPLEEN: No splenomegaly. PANCREAS: No focal masses or ductal dilatation. ADRENALS: No adrenal nodules KIDNEYS/URETERS: No hydronephrosis. No cystic or solid mass lesions. No stones. GI TRACT: There is a small sized hiatal hernia. Enteric contrast material is seen in the small bowel only. Large bowel is not opacified by enteric contrast, limiting optimal assessment. There is diffuse diverticulosis coli and apparent circumferential wall thickening of the sigmoid colon which is difficult to evaluate due to lack of enteric contrast. There is mildly dilated loops of large bowel proximal to the sigmoid colon. The appendix is normal. PELVIC ORGANS/BLADDER: Unremarkable. LYMPH NODES: No lymphadenopathy. VESSELS: There is severe atherosclerotic disease in the aorta and major arterial branches. PERITONEUM / RETROPERITONEUM: No free air or fluid. BONES: There are degenerative changes in the spine. There are compression fracture deformities of T10, T12, L2, L3 and L4 vertebral bodies. SOFT TISSUES: Unremarkable. IMPRESSION: 1. Diverticulosis coli and apparent circumferential wall thickening of the sigmoid colon with mild colonic dilatation proximally. This constellation of findings may represent acute diverticulitis causing mucosal wall thickening and partial large bowel obstruction. However, this may also represent sigmoid colon malignancy resulting in partial large bowel obstruction. Recommend repeat abd ominal/pelvic CT with addition of intravenous contrast in 1-2 hours to also w enteric contrast into the large bowel for optimal assessment. 2. Compression fractures involving T10, T12, L2, L3 and L4 vertebral bodies of indeterminate age. Correlate with history of trauma and point tenderness. Signed by: Ben Foss MD on 06/25/2020 7:04 PM Dictated By: BEN FOSS MD 03 Transcribed By: MARILYNN on 06/25/201903 COPY TO: SHERMAN STEEN MD Blood leukocytes automated count (number/volume) 2020-04-26 22:27:00 Test Item White Blood Count (test code = 6690-2) 11.37 4.8-10.8 [facility] automated count (number/volume)2020-04-26 22:27:00* Test Item Value Reference Range Interpretation Comments Red Blood Count (test code = 789-8) 4.50 3.6-5.1 [facility] hemoglobin measurement (moles/volume)2020-04-26 22:27:00* Test Item Value Reference Range Interpretation Comments Hemoglobin (test code = 72928-5) 12.5 12.0-16.0 [facility] blood hematocrit (volume fraction)2020-04-26 22:27:00* Test Item Value Reference Range Interpretation Comments Hematocrit (test code = 4544-3) 40.5 34.2-44.1 [facility] erythrocyte mean corpuscular vkcmlo0149-60-35 22:27:00* Test Item Value Reference Range Interpretation Comments Mean Corpuscular Volume (test code = 787-2) 90.0 81-99 [facility] eryth[facility] mean corpuscular hemoglobin (mass per erythrocyte)2020-04-26 22:27:00* Test Item Value Reference Range Interpretation Comments Mean Corpuscular Hemoglobin (test code = 785-6) 27.8 28-32 [facility] erythrocyte mean corpuscular hemoglobin concentration measurement (mass/volume)2020-04-26 22:27:00* Test Item Value Reference Range Interpretation Comments Mean Corpuscular Hemoglobin Concent (test code = 786-4) 30.9 31-35 [facility] HospitalRDW VhhSt-Clf7615-95-30 22:27:00* Test Item Value Reference Range Interpretation Comments Red Cell Distribution Width (test code = 94282-3) 14.2 11.7 -14.4 [facility] blood platelet count (count/volume)2020-04-26 22:27:00* Test Item Value Reference Range Interpretation Comments Platelet Count (test code = 777-3) 314 140-360 [facility] blood segmented neutrophil count as percentage of total rimocrnuyx4172-49-00 22:27:00* Test Item Value Reference Range Interpretation Comments Neutrophils (%) (Auto) (test code = 09750-5) 83.1 38.7-80.0 [facility] Hospital[facility] blood lymphocyte count as percentage ot total iwxruzqgvr9150-89-00 22:27:00* Test Item Value Reference Range Interpretation Comments Lymphocytes (%) (Auto) (test code = 736-9) 10.6 18.0-39.1 [facility] Hospital[facility] blood monocyte count as percentage of total ketawblvee2150-02-23 22:27:00* Test Item Value Reference Range Interpretation Comments Monocytes (%) (Auto) (test code = 5905-5) 5.2 4.4-11.3 [facility] blood eosinophil count as percentage of total enjmdabsem5687-81-28 22:27:00* Test Item Value Reference Range Interpretation Comments Eosinophils (%) (Auto) (test code = 713-8) 0.3 0.0-6.0 [facility] Hospital[facility] blood basophil count as percentage of total dqioevhjgc6713-31-32 22:27:00* Test Item Value Reference Range Interpretation Comments Basophils (%) (Auto) (test code = 706-2) 0.4 0.0-1.0 [facility] HospitalFluoroscopic procedure less than one hour congypnh6646-09-58 22:27:00* Test Item Value Reference Range Interpretation Comments IM GRANULOCYTES % (test code = IM GRANULOCYTES %) 0.4 0.0- 1.0 [facility] HospitalAutom[facility] blood neutrophil count 2020-04-26 22:27:00* Test Item Value Reference Range Interpretation Comments Neutrophils # (Auto) (test code = 751-8) 9.5 2.1-6.9 [facility] lymphocytes count (number/volume) 2020-04-26 22:27:00* Test Item Value Reference Range Interpretation Comments Lymphocytes # (Auto) (test code = 11337-3) 1.2 1.0-3.2 [facility] HospitalBlood monocytes automated count (number/volume)2020-04-26 22:27:00* Test Item Value Reference Range Interpretation Comments Monocytes # (Auto) (test code = 742-7) 0.6 0.2-0.8 [facility] HospitalAutomated blood eosinophil count 2020-04-26 22:27:00* Test Item Value Reference Range Interpretation Comments Eosinophils # (Auto) (test code = 711-2) 0.0 0.0-0.4 [facility] HospitalAutomated blood basophil count (count/volume)2020-04-26 22:27:00* Test Item Value Reference Range Interpretation Comments Basophils # (Auto) (test code = 704-7) 0.0 0.0-0.1 [facility] HospitalFluoroscopic procedure less than one hour rbwekbue7192-04-14 22:27:00* Test Item Value Reference Range Interpretation Comments Absolute Immature Granulocyte (auto (ana t code = Absolute Immature Granulocyte (auto) 0.04 0-[address] [facility] [place] [place] sodium measurement (moles/volume)2020-04-26 22:27:00* Test Item Value Reference Range Interpretation Comments Sodium Level (test code = 2951-2) 133 136-[address] [facility] [place] plasma potassium measurement (moles/volume)2020-04-26 22:27:00* Test Item Value Reference Range Interpretation Comments Potassium Level (test code = 2823-3) 4.1 3.5-5.[address] [facility] [place] plasma chloride measurement (moles/volume)2020-04-26 22:27:00* Test Item Value Reference Range Interpretation Comments Chloride Level (test code = 2075-0) 99 98-[address] [facility] [place] or plasma carbon dioxide, total measurement (moles/volume)2020-04-26 22:27:00* Test Item Value Reference Range Interpretation Comments Carbon Dioxide Level (test code = 2028-9) 24 22-[address] [facility] [place], [place] or plasma anion [id number] 22:27:00* Test Item Value Reference Range Interpretation Comments Anion Gap (test code = 20742-4) 14.1 8-[address] [facility] [place], [place] or plasma urea nitrogen measurement (mass/volume)2020-04-26 22:27:00* Test Item Value Reference Range Interpretation Comments Blood Urea Nitrogen (test code = 3094-0) 13 7-[address] [facility] [place] [place] or plasma creatinine measurement (mass/volume)2020-04-26 22:27:00* Test Item Value Reference Range Interpretation Comments Creatinine (test code = 2160-0) 1.43 0.57-1.[address] [facility] [place], [place] or plasma urea nitrogen/creatinine mass [id number] 22:27:00* Test Item Value Reference Range Interpretation Comments BUN/Creatinine Ratio (test code = 3097-3) 9 6-25 [facility] HospitalEstimated glomerular filtration rate (GFR) hcrhltdtvggdi1968-65-06 22:27:00* Test Item Value Reference Range Interpretation Comments Estimat Glomerular Filtration Rate (test code = 179935718) 36 >60 Ranges were taken from the National Kidney Disease Education Program and the [facility] literature.Reference ranges:60 or greater: Jkutny56-12 ( for 3 consecutive months): Chronic kidney disease 15 or less: Kidney failureUT Health East [facility] Carthage HospitalGlucose onzlvnpszkn9458-12-96 22:27:00* Test Item Value Reference Range Interpretation Comments Glucose Level (test code = BSR4023) 115 74-[address] [facility] [place], [place] or plasma calcium measurement (mass/volume)2020-04-26 22:27:00* Test Item Value Reference Range Interpretation Comments Calcium Level (test code = 93909-1) 9.6 8.4-10.[address] [facility] [place], [place] or plasma total bilirubin measurement (mass/volume)2020-04-26 22:27:00* Test Item Value Reference Range Interpretation Comments Total Bilirubin (test code = 1975-2) 0.4 0.2-1.2 [facility] HospitalFluoroscopic procedure less than one hour nlitgqir5624-65-94 22:27:00* Test Item Value Reference Range Interpretation Comments Aspartate Amino Transf (AST/SGOT) (test code = Aspartate Amino Transf (AST/SGOT)) 14 5-[address] [facility] [place], [place]erum or plasma alanine aminotransferase measurement (enzymatic activity/volume)2020-04-26 22:27:00* Test Item Value Reference Range Interpretation Comments Alanine Aminotransferase (ALT/SGPT) (test code = 1742-6) 6 0-[address] [facility] [place], [place]um or plasma protein measurement (mass/volume)2020-04-26 22:27:00* Test Item Value Reference Range Interpretation Comments Total Protein (test code = 2885-2) 7.5 6.5-8.[address] [facility] [place], [place]um or plasma albumin measurement (mass/volume)2020-04-26 22:27:00* Test Item Value Reference Range Interpretation Comments Albumin (test code = 1751-7) 4.1 3.5-5.0 [facility] HospitalPlasma globulin measurement (mass/volume) 2020-04-26 22:27:00* Test Item Value Reference Range Interpretation Comments Globulin (test code = 40094-2) 3.4 2.3-3.[address] [facility] [place], [place] or plasma albumin/globulin mass [id number] 22:27:00* Test Item Value Reference Range Interpretation Comments Albumin/Globulin Ratio (test code = 1759-0) 1.2 0.8-2.[address] [facility] [place], [place]erum or plasma alkaline phosphatase measurement (enzymatic activity/volume)2020-04-26 22:27:00* Test Item Value Reference Range Interpretation Comments Alkaline Phosphatase (test code = 6768-6) 72 40-[address] [facility] [place], [place]erum or plasma lipase measurement (enzymatic activity/volume)2020-04-26 22:27:00* Test Item Value Reference Range Interpretation Comments Lipase (test code = 3040-3) 23 8-78 [facility]-1VIEW (KUB)2020-04-26 21:44:00 [facility] [address] [address] Patient Name: CRISTIANE LIRA MR #: [id number] : 1940 Age/Sex: 79/F Req #: [id number] Adm Physician: Ordered by: ADELA JAQUEZ DO Report #: [id number] Location: ER Room/Bed: Procedure: [id number] DX/ABDO MEN-1VIEW (KUB) Exam Date: 04/26/20 Exam Time: 2119 REPORT STATUS: Signed EXAM: Abdo men Radiograph 1 View(s) INDICATION: Y ABD PAIN [id number] COMPARISON: None FINDINGS: Diffuse gaseous distention of the colon . No discrete dilated small bowel loops. No abnormal soft tissue calcificat ion. No discrete free intraperitoneal air. Scattered osseous degenerative c hange. No acute osseous abnormality. IMPRESSION: Diffuse gaseous diste ntion of the colon. No identifiable dilated small bowel loops to suggest small bowel obstruction. Signed by: Liv Michelle MD on 04/26/2020 9:46 PM Dictated By: LIV MICHELLE MD 45 Transcribed By: MARILYNN on 04/26/202145 COPY TO: ADELA DEVINE DO
[2020-06-25 20:30] VITALS: BP 157/73
[2020-06-25] MEDS: METRONIDAZOLE 500MG/NS 100ML IV SCH (20:54)
[2020-06-25] MEDS: SODIUM CHLORIDE 0.9% 1000ML 1,000 ML IV SCH (20:54)
[2020-06-25 20:58] VITALS: BP 157/73
[2020-06-25] MEDS ORDERED: ASPIRIN81 MG PO (21:08)
[2020-06-25] MEDS ORDERED: ROBITUSSIN COU118 M4 PO (21:08)
[2020-06-25] MEDS ORDERED: CLOPIDOGREL75 MG PO (21:08)
[2020-06-25] MEDS ORDERED: SYNTHROID75 MCG PO (21:08)
[2020-06-25] MEDS ORDERED: ADVAIR HFA 115-12 GM INH (21:08)
[2020-06-25] MEDS ORDERED: LOSARTAN POTASS25 MG PO (21:08)
[2020-06-25] MEDS ORDERED: BUMETANIDE1 MG PO (21:08)
[2020-06-25] MEDS ORDERED: CRESTOR10 MG PO (21:08)
[2020-06-25] MEDS ORDERED: ALENDRONATE SOD70 MG PO (21:08)
[2020-06-25] MEDS ORDERED: COLACE100 MG PO (21:08)
[2020-06-25] MEDS ORDERED: METOPROLOL TART50 MG PO ×2 (21:08)
[2020-06-25 22:31] VITALS: BP 144/77
[2020-06-25] MEDS: LEVOFLOXACIN 500MG/D5W 100ML IV SCH (23:21)
[2020-06-25] MEDS ORDERED: ACETAMINOPHEN 325 MG TAB PO PRN (23:30)
[2020-06-26] VITALS (8 sets, daily range): BP systolic 114–162; BP diastolic 58–74
[2020-06-26] MEDS: METRONIDAZOLE 500MG/NS 100ML IV SCH ×5 (00:33→23:37)
[2020-06-26] MEDS: PANTOPRAZOLE 40 MG 10ML VIAL IV SCH ×3 (01:34→20:21)
[2020-06-26 04:59] LABS: BASOPHILS % 0.2 % (0.0-1.0); EOSINOPHILS % 0.3 % (0.0-6.0); HEMATOCRIT 33.8 % (34.2-44.1); HEMOGLOBIN 10.7 g/dL (12.0-16.0); LYMPHOCYTES # (AUTO) 1.6 (1.0-3.2); LYMPHOCYTES % 13.5 % (18.0-39.1); MEAN CORPUSCULAR HEMOGLOBIN 28.3 pg (28-32); MEAN CORPUSCULAR HGB CONC 31.7 g/dL (31-35); MEAN CORPUSCULAR VOLUME 89.4 fL (81-99); MONOCYTES % 8.5 % (4.4-11.3); NEUTROPHILS # (AUTO) 8.9 (2.1-6.9); NEUTROPHILS % 76.9 % (38.7-80.0); PLATELET COUNT 283 x10e3/uL (140-360); RED BLOOD COUNT 3.78 x10e6/uL (3.6-5.1); RED CELL DISTRIBUTION WIDTH 14.1 % (11.7-14.4)
[2020-06-26 05:25] LABS: ALBUMIN 3.1 g/dL (3.5-5.0); ALKALINE PHOSPHATASE 62 IU/L (40-150); ANION GAP 15.6 mmol/L (8-16); BLOOD UREA NITROGEN 9 mg/dL (7-26); BUN/CREATININE RATIO 9 (6-25); CALCIUM 8.4 mg/dL (8.4-10.2); CARBON DIOXIDE 21 mmol/L (22-29); CHLORIDE 99 mmol/L (98-107); CREATININE, SERUM 1.03 mg/dL (0.57-1.11); EST GLOMERULAR FILTRATION RATE 52 ML/MIN (60-); GLUCOSE 97 mg/dL (74-118); POTASSIUM 3.6 mmol/L (3.5-5.1); SODIUM 132 mmol/L (136-145)
[2020-06-26 05:26] LABS: ALANINE AMINOTRANSFERASE < 6 IU/L (0-55)
[2020-06-26] MEDS: SODIUM CHLORIDE 0.9% 1000ML 1,000 ML IV SCH (12:31)
--- NOTE | 2020-06-26 13:37 | History and Physical ---
PRIMARY CARE PHYSICIAN: Dr. Jenna Bourne at [facility]. CHIEF COMPLAINT: Abdominal pain, radiating to her back and constipation. HISTORY OF PRESENT ILLNESS: This is a 79-year-old female with past medical history of hypertension, high cholesterol, COPD, CHF, and osteoarthritis, presented to the ER with complaints of abdominal pain, radiating to her back and constipation. She reports three weeks ago she had worked out in the pool and had some pain and went to her doctor who had given her some pain medication/muscle relaxer, which continued to constipate her and stopped taking it about a week ago, but her lower abdomen was hurting with no bowel movements for a few days. She reports yesterday the pain was so severe and with no appetite. She denies any fever, chills, nausea, vomiting, diarrhea, melena, hematuria, or dysuria. She reports the pain is located in the lower abdomen radiating to her back, but denies any chest pain, shortness of breath, or cough. She reports taking some laxatives yesterday, which this morning she was able to have a large bowel movement. PAST MEDICAL HISTORY: 1. Hypertension. 2. High cholesterol. 3. Congestive heart failure. 4. CAD. 5. COPD. 6. Osteoporosis. 7. Hypothyroidism. PAST SURGICAL HISTORY: She reports bypass. FAMILY MEDICAL HISTORY: She reports father had cancer and mother had hypertension. SOCIAL HISTORY: She reports quitting smoking when she was 42 years old, but denies any alcohol or illicit drug use. ALLERGIES: SHE IS ALLERGIC TO PENICILLIN, SULFA, AND CODEINE. REVIEW OF SYSTEMS: Twelve-system reviewed and negative except as reported in the HPI. PHYSICAL EXAMINATION: VITAL SIGNS: Temperature 98.2, pulse is 85, respirations 17, blood pressure 125/69, and pulse ox is 97% on room air. GENERAL: No acute distress. HEENT: Normocephalic, atraumatic. NECK: Supple. LUNGS: Clear to auscultation. CARDIOVASCULAR: Regular rate and rhythm. GI: Mild tenderness in the lower quadrant. NEUROLOGIC: Alert, awake, and oriented x3. MUSCULOSKELETAL: Moves all extremities. SKIN: Dry. PSYCH: Calm. LABORATORY DATA: WBC 13.69, hemoglobin 12.4, hematocrit 38.9, and platelet 332. Sodium 132, potassium 4.0, BUN 11, creatinine 1.33, now 1.03, estimated GFR is 39, AST 12, ALT less than 6, and albumin 3.8. PT 13.0, INR 0.94, and APTT 29.4. UA clear yellow with trace leukocyte esterase, 6-10 RBCs, 6-10 WBCs and rare bacteria. Stool occult blood is negative. Coronavirus PCR is pending. Urine culture is pending. IMAGING DATA: CT abdomen and pelvis shows diverticulosis with wall thickening of the sigmoid colon with mild colonic dilation proximally which may represent acute diverticulitis, closing mucosal wall thickening and partial large bowel obstruction. It may also represent sigmoid colon malignancy resulting in partial large bowel obstruction. Repeat CT recommended with IV and enteral contrast, also shows compression fracture involving T10, T12, L2, L3 and L4 vertebral bodies of indeterminate age. IMPRESSION: 1. Abdominal pain due to acute diverticulitis and large bowel obstruction per CT. We will continue with IV fluids, Flagyl and Levaquin IV. Pain management as needed. She did have a bowel movement this morning. GI and surgical team have been consulted. 2. Leukocytosis, likely due to diverticulitis. We will continue with IV antibiotics and monitor trend. 3. Hypertension. We will resume her home dose of metoprolol and losartan. 4. High cholesterol. We will resume statin. 5. Chronic obstructive pulmonary disease, stable. We will treat with DuoNebs as needed. 6. Congestive heart failure. Unspecified type. Stable without exacerbation. We will resume home medication. 7. Osteoarthritis. CT imaging shows fracture in the T10, T12, and L2. She reports she is taking some medicine, Fosamax once a week. We will continue pain management as needed and have her follow up as an outpatient. 8. Hypothyroidism. Continue Synthroid. 9. Deep venous thrombosis prophylaxis. sequential compression devices due to anemia. PLAN: To continue on clear liquids and IV antibiotics. Further recommendation per GI and surgical team. Dictated by ALIS Casas Juanita Duke MD MY/MODL /[id number]
[2020-06-26] MEDS ORDERED: ONDANSETRON HCL 4 MG ORAL DISINTEGRATING TAB PO PRN (14:45)
[2020-06-26] MEDS: METOPROLOL TARTRATE 25 MG TAB PO SCH (20:21)
[2020-06-26] MEDS: SIMVASTATIN 20 MG TAB PO SCH (20:21)
[2020-06-26] MEDS: LEVOFLOXACIN 500MG/D5W 100ML IV SCH (20:21)
[2020-06-27] VITALS (8 sets, daily range): BP systolic 143–164; BP diastolic 71–81
[2020-06-27 05:09] LABS: BASOPHILS % 0.5 % (0.0-1.0); EOSINOPHILS # (AUTO) 0.1 (0.0-0.4); EOSINOPHILS % 0.9 % (0.0-6.0); HEMATOCRIT 32.6 % (34.2-44.1); HEMOGLOBIN 10.5 g/dL (12.0-16.0); LYMPHOCYTES # (AUTO) 0.9 (1.0-3.2); LYMPHOCYTES % 13.5 % (18.0-39.1); MEAN CORPUSCULAR HGB CONC 32.2 g/dL (31-35); MEAN CORPUSCULAR VOLUME 90.1 fL (81-99); MONOCYTES # (AUTO) 0.7 (0.2-0.8); MONOCYTES % 10.4 % (4.4-11.3); NEUTROPHILS # (AUTO) 4.8 (2.1-6.9); NEUTROPHILS % 74.2 % (38.7-80.0); PLATELET COUNT 268 x10e3/uL (140-360); RED BLOOD COUNT 3.62 x10e6/uL (3.6-5.1); RED CELL DISTRIBUTION WIDTH 14.1 % (11.7-14.4)
[2020-06-27] MEDS: METRONIDAZOLE 500MG/NS 100ML IV SCH ×4 (05:11→23:40)
[2020-06-27] MEDS: LEVOTHYROXINE SODIUM 75 MCG TAB PO SCH (05:11)
[2020-06-27 05:35] LABS: CALCIUM 8.6 mg/dL (8.4-10.2); CREATININE, SERUM 1.03 mg/dL (0.57-1.11)
[2020-06-27] MEDS: SODIUM CHLORIDE 0.9% 1000ML 1,000 ML IV SCH (08:37)
[2020-06-27] MEDS: LOSARTAN POTASSIUM 25 MG TAB PO SCH (09:00)
[2020-06-27] MEDS: PANTOPRAZOLE 40 MG 10ML VIAL IV SCH ×2 (09:31→21:45)
--- NOTE | 2020-06-27 12:06 | Progress Note ---
DATE: 06/27/2020 CONSULTANTS: 1. Dr. Jarquin, GI. 2. Dr. Wade, Surgery. SUBJECTIVE: The patient is in bed with no acute distress, she is n.p.o. for EGD this morning. She reports diarrhea as a result of laxative use before she came in. We will continue to monitor. She denies any chest pain, shortness of breath, fever, chills, nausea, or vomiting. OBJECTIVE: VITAL SIGNS: Temperature 98.0, pulse is 78, respirations 20, blood pressure 152/81, pulse ox is 100% on room air. GENERAL: No acute distress. HEENT: Normocephalic, atraumatic. NECK: Supple. LUNGS: Clear to auscultation. CARDIOVASCULAR: Regular rate and rhythm. GI: Diffuse mild tenderness. NEUROLOGIC: Alert, awake, oriented x3. MUSCULOSKELETAL: Moves all extremities. No edema. SKIN: Dry. PSYCH: Calm. LABORATORY DATA: WBC 6.44, hemoglobin 10.5, hematocrit 32.6, and platelet 268. Sodium 135, potassium 4.0, CO2 19, BUN 8, creatinine 1.03, estimated GFR is 52, and calcium 8.6. IMPRESSION: 1. Abdominal pain, likely due to acute diverticulitis and large bowel obstruction per CT. Abdominal pain is improving some, EGD scheduled today per GI. We will continue on Levaquin and Flagyl. 2. Leukocytosis, resolved. Likely due to above. We will continue with IV antibiotics. 3. Hypertension. Continue home metoprolol and losartan. 4. High cholesterol. Continue on statin. 5. Chronic obstructive pulmonary disease. Stable without exacerbation. DuoNeb as needed. 6. Congestive heart failure, unspecified type. Without exacerbation. We will resume home medication once p.o. started. 7. Osteoarthritis. CT imaging shows fracture in the T and L-spine. Notified the patient and reports taking Fosamax once a week. Advised to follow up with PCP outpatient. Currently very minimal pain. 8. Hypothyroidism. Continue Synthroid. 9. Deep vein thrombosis prophylaxis. SCDs due to anemia and depending procedures. Plan is for EGD this morning. Per GI, we will continue with IV antibiotics. Further recommendations per GI and surgical team. Dictated by ALIS Casas Yiching MD JAGUAR Malik/JOSÉ /[id number]
--- NOTE | 2020-06-27 16:32 | Operative Report ---
DATE OF PROCEDURE: 06/27/2020 SURGEON: Johnny Jarquin MD PROCEDURE: EGD with biopsies. INDICATIONS FOR EGD: Upper abdominal pain, early satiety, dark stools. MEDICATIONS: The patient was done under MAC, please see anesthesiologist's note. PROCEDURE IN DETAIL: With the patient in the left lateral decubitus position, a flexible fiberoptic Olympus gastroscope was introduced into the esophagus under direct visualization without any difficulty. There was some patchy erythema noted in distal esophagus. The scope was then advanced with ease into the stomach traversing an approximately 6 cm hiatal hernia. Mucosa overlying the antrum and the body revealed some diffuse erythema and [id number] edema, and biopsies were obtained and sent to stain for H. pylori. Pylorus was of normal contour and shape, was intubated with ease and the scope was advanced all the way to the second portion of the duodenum. The scope was then withdrawn slowly, mucosa overlying the proximal second portion and the duodenal bulb grossly appeared to be within normal limits. The scope was then withdrawn back into the stomach and retroflexed, and the previously described hiatal hernia was also noted in the retroflexed position. The scope was then straightened out, it was subsequently withdrawn, and the patient tolerated the procedure well. IMPRESSION: 1. Distal esophagitis, mild. 2. Large hiatal hernia approximately 6 cm in size. 3. Gastritis, biopsied, biopsies sent to stain for Helicobacter pylori. PLAN: Follow up histology. Initiate full liquid diet. Continue current PPI therapy. Johnny Jarquin MD [facility] /[id number] cc: Juanita Duke MD
[2020-06-27] MEDS ORDERED: PROPOFOL IV EMULSION 10 MG/ML 20 ML VIAL ONE (17:43)
[2020-06-27] MEDS: LEVOFLOXACIN 500MG/D5W 100ML IV SCH (20:00)
[2020-06-27] MEDS: METOPROLOL TARTRATE 25 MG TAB PO SCH (21:05)
[2020-06-27] MEDS: SIMVASTATIN 20 MG TAB PO SCH (21:05)
[2020-06-28] VITALS: BP 149/78
[2020-06-28 04:00] VITALS: BP 164/78
[2020-06-28] MEDS: SODIUM CHLORIDE 0.9% 1000ML 1,000 ML IV SCH (04:03)
[2020-06-28] MEDS: METRONIDAZOLE 500MG/NS 100ML IV SCH ×2 (06:01→11:48)
[2020-06-28] MEDS: LEVOTHYROXINE SODIUM 75 MCG TAB PO SCH (06:01)
[2020-06-28 08:00] VITALS: BP 146/73
[2020-06-28] MEDS: PANTOPRAZOLE 40 MG 10ML VIAL IV SCH (08:46)
[2020-06-28] MEDS: LOSARTAN POTASSIUM 25 MG TAB PO SCH (08:47)
[2020-06-28 09:00] VITALS: BP 146/73
[2020-06-28 11:53] VITALS: BP 122/64
[2020-06-28] MEDS ORDERED: LEVAQUIN500 MG PO (11:54)
[2020-06-28] MEDS ORDERED: FLAGYL500 MG PO (11:54)
[2020-06-28 16:00] VITALS: BP 153/81
--- NOTE | 2020-06-28 20:59 | Discharge Summary ---
PCP: Dr. Jenna Bourne at [facility] FINAL DISCHARGE DIAGNOSES: 1. Abdominal pain due to acute diverticulitis and large bowel obstruction per CT. 2. Leukocytosis. 3. Hypertension. 4. High cholesterol. 5. Chronic obstructive pulmonary disease, stable. 6. Congestive heart failure, unspecified type. 7. Osteoarthritis. 8. Hypothyroidism. CONSULTANTS: 1. Dr. Johnny Jarquin with GI. 2. Dr. Wade with surgical team. PROCEDURES: She underwent EGD, which showed gastritis, biopsied, and hiatal hernia. HISTORY: Per HPI. HOSPITAL COURSE: This is a 79-year-old female, who presented to the ER with complaints of severe abdominal pain with no fever, chills, nausea, or vomiting. She reported feeling bloated and unable to eat due to loss of appetite due to pain. She reports abdominal pain radiating to her back. CT abdomen showed diverticulitis with wall thickening of the sigmoid colon and mild colonic dilation proximally, which may represent acute diverticulitis, closing mucosal wall thickening, and partial large bowel obstruction and may also represent sigmoid colon malignancy resulting in partial large bowel obstruction. Repeat CT recommended with IV and enteral contrast. Also showed compression fracture involving T10, T12, L2, L3, and L4 of indeterminate age. GI was consulted and underwent EGD, abdominal pain improved after she had multiple bowel movements. No further surgical intervention needed. She was made aware of her compression fractures of her spine and will follow up outpatient for further evaluation. Currently, she is active and no pain in the lower back. She also underwent EGD per GI and showed gastritis, which was biopsied. She is tolerating diet, moving somewhat soft stool, abdominal pain is almost resolved. She will be discharging home on Levaquin and Flagyl to complete a course of treatment and follow up with Dr. Jarquin in 1 to 2 weeks for further evaluation and possible colonoscopy. PHYSICAL EXAMINATION: VITAL SIGNS: Temperature 98.2, pulse is 76, respirations 20, blood pressure 122/64, and pulse ox is 90% on room air. GENERAL: No acute distress. HEENT: Normocephalic and atraumatic. NECK: Supple. LUNGS: Clear to auscultation. CARDIOVASCULAR: Regular rate and rhythm. GI: Soft and tender. MUSCULOSKELETAL: Moves all extremities. NEUROLOGIC: Alert, awake, and oriented x3. PSYCH: Calm. CONDITION AT DISCHARGE: Improved and stable. DISCHARGE MEDICATIONS: Please see medication reconciliation list. FOLLOWUP: Follow up with Dr. Jarquin and PCP in 1 to 2 weeks. TIME SPENT: Total time of discharge is 31 minutes. Dictated by ALIS Casas Yiching Jeromy Duke MD [facility] /[id number] cc: Jenna Bourne MD [facility]
== END 2020-06-28 16:33 | disposition home or self-care (01) | DRG 392 ==
LOC: ER 16:02 → ERHOLD 19:42 → MED/SURG 20:41
PROVIDERS: ADMIT Internal Medicine; ATTEND Internal Medicine
PROC: 0DB78ZX Excision of Stomach, Pylorus, Via Natural or Artificial Opening Endoscopic, Diagnostic (ICD-10-PCS; principal; 2020-06-25)
DX: K57.92 Diverticulitis of intestine, part unspecified, without perforation or abscess without bleeding (principal); N39.0 Urinary tract infection, site not specified; K56.609 Unspecified intestinal obstruction, unspecified as to partial versus complete obstruction; I50.9 Heart failure, unspecified; K57.32 Diverticulitis of large intestine without perforation or abscess without bleeding; E03.9 Hypothyroidism, unspecified; J44.9 Chronic obstructive pulmonary disease, unspecified; M19.90 Unspecified osteoarthritis, unspecified site; E78.00 Pure hypercholesterolemia, unspecified; K20.9 Esophagitis, unspecified; K44.9 Diaphragmatic hernia without obstruction or gangrene; K29.70 Gastritis, unspecified, without bleeding; I11.0 Hypertensive heart disease with heart failure
CPT/HCPCS: 36415; 43239; 74176; 80048; 80053; 81001; 82270; 85025; 85610; 85730; 87086; 88305; 88312; 99284; J0696; J1956; J7030; U0002

== ENCOUNTER 2022-01-20 12:15 | Emergency (ER) | payer MEDICARE, OTHER ==
[~2022-01-20] VITALS: Ht 152.4 cm; Wt 68.5 kg
[~2022-01-20 12:15] MED LIST: ADVAIR HFA 115-12 GM INH; ALENDRONATE SOD70 MG PO; ASPIRIN81 MG PO; BUMETANIDE1 MG PO; CLOPIDOGREL75 MG PO; COLACE100 MG PO; CRESTOR10 MG PO; FLAGYL500 MG PO; LEVAQUIN500 MG PO; LOSARTAN POTASS25 MG PO; METOPROLOL TART50 MG PO; ROBITUSSIN COU118 M4 PO; SYNTHROID75 MCG PO
[2022-01-20 16:10] VITALS: BP 136/79
== END 2022-01-20 16:16 | disposition home or self-care (01) ==
LOC: ER 12:55
DX: R07.89 Other chest pain (principal); S20.211A Contusion of right front wall of thorax, initial encounter; W01.0XXA Fall on same level from slipping, tripping and stumbling without subsequent striking against object, initial encounter; I10 Essential (primary) hypertension; J44.9 Chronic obstructive pulmonary disease, unspecified; I50.9 Heart failure, unspecified; E78.5 Hyperlipidemia, unspecified; J45.909 Unspecified asthma, uncomplicated; I25.2 Old myocardial infarction; Z95.1 Presence of aortocoronary bypass graft
CPT/HCPCS: 70450; 71250; 99283